=== PATIENT | male | born 1945 | race Caucasian/White ===

== ENCOUNTER → 2019-03-20 | Outpatient (CLI) | payer MEDICARE ==
[~2019-03-20] MED LIST: ACET325T14 PO; CIPR500T8 PO; OXYC-302 PO; TAMS0.4C2 PO; TRAM-47 PO
== END | disposition home or self-care (01) ==
LOC: RAD 17:38
PROVIDERS: ATTEND Physician Assistant Surgical
DX: S83.511A Sprain of anterior cruciate ligament of right knee, initial encounter (principal); M17.11 Unilateral primary osteoarthritis, right knee; X58.XXXA Exposure to other specified factors, initial encounter; Y93.89 Activity, other specified; Y92.89 Other specified places as the place of occurrence of the external cause; Y99.8 Other external cause status

== ENCOUNTER 2019-11-17 14:32 | Outpatient (CLI) | payer MEDICARE ==
[2019-11-17] MEDS ORDERED: ESOM40CA PO (15:56)
[2019-11-17] MEDS ORDERED: [UNRECOGNIZED DRUG - OTHER] PO (15:56)
[2019-11-17] MEDS ORDERED: KRIL1CAP5 PO (15:56)
[2019-11-17] MEDS ORDERED: IRON18TA PO (15:56)
[2019-11-17] MEDS ORDERED: UBID100C41 PO (15:56)
[2019-11-17 15:59] LABS: BASOPHILS # (AUTO) 0.01 x10^3/uL (0-0.1); BASOPHILS % (AUTO) 0 % (0-1); EOSINOPHILS # (AUTO) 0.15 x10^3/uL (0-0.4); EOSINOPHILS % (AUTO) 2 % (1-7); LYMPHOCYTES # (AUTO) 1.27 x10^3/uL (1-3.4); LYMPHOCYTES % (AUTO) 21 % (22-44); MD NO; MEAN CORPUSCULAR HEMOGLOBIN 28.8 pg (27.5-34.5); MEAN CORPUSCULAR HGB CONC 32.6 g/dL (33.2-36.2); MEAN CORPUSCULAR VOLUME 88.3 fL (81-97); MEAN PLATELET VOLUME 9.1 fL (7.4-10.4); MONOCYTES # (AUTO) 0.65 x10^3/uL (0.2-0.8); MONOCYTES % (AUTO) 11 % (2-9); NEUTROPHILS # (AUTO) 4.11 x10^3/uL (1.8-6.8); NEUTROPHILS % (AUTO) 67 % (42-75); PLATELET COUNT 199 x10^3/uL (130-400); RED BLOOD COUNT 5.28 x10^6/uL (4.38-5.82); RED CELL DISTRIBUTION WIDTH 19.2 % (9.4-14.8)
== END 2019-11-17 23:59 | disposition home or self-care (01) ==
LOC: STAR 14:32
PROVIDERS: ATTEND Thoracic Surgery (Cardiothoracic Vascular Surgery)
DX: Z01.818 Encounter for other preprocedural examination (principal); Z11.59 Encounter for screening for other viral diseases
CPT/HCPCS: 36415; 85025; 87635; 93005

== ENCOUNTER 2019-11-22 08:45 | Day surgery (SDC) | payer MEDICARE ==
[~2019-11-22] VITALS: Ht 185.4 cm; Wt 93.1 kg
[~2019-11-22 08:45] MED LIST changes: +ESOM40CA PO; +IRON18TA PO; +KRIL1CAP5 PO; +UBID100C41 PO; +[UNRECOGNIZED DRUG - OTHER] PO
[2019-11-22] MEDS ORDERED: BUPIVACAINE/PF-EPI 0.5% 1:200K ONE (09:08)
[2019-11-22] MEDS ORDERED: LACTATED RINGERS 1,000 ML IV SCH ×2 (09:20→12:12)
[2019-11-22 09:21] VITALS: BP 173/106
[2019-11-22] MEDS ORDERED: CHLORHEXIDINE 15 ML UDC MM ONE (09:30)
[2019-11-22] MEDS ORDERED: FENTANYL PF 250 MCG/5ML ONE (10:09)
[2019-11-22] MEDS ORDERED: CLINDAMYCIN 150 MG/ML, 6ML ONE (10:41)
[2019-11-22] MEDS ORDERED: BUPIVACAINE/PF-EPI 0.5% 1:200K INFIL ONE (11:02)
[2019-11-22] MEDS ORDERED: ACETAMINOPHEN 325 MG TABLET PO PRN (11:30)
[2019-11-22] MEDS ORDERED: OXYcodone 5 MG/5 ML ORAL.SOL UDC PO PRN (11:30)
[2019-11-22] MEDS ORDERED: MEPERIDINE/PF 25MG/0.5ML IVPush PRN (11:30)
[2019-11-22] MEDS ORDERED: PROMETHAZINE 25 MG/ML, 1ML IVPush PRN (11:30)
[2019-11-22] MEDS ORDERED: HYDROmorphone 1 MG/ML, 1ML INJ IVPush PRN (11:30)
[2019-11-22] MEDS ORDERED: LABETALOL 5MG/ML, 20ML IV PRN (11:30)
[2019-11-22] MEDS ORDERED: hydrALAzine 20 MG/ML, 1ML IV PRN ×2 (11:30→12:30)
[2019-11-22] MEDS ORDERED: MIDAZOLAM 1 MG/ML, 2ML IV PRN (11:30)
[2019-11-22] MEDS ORDERED: ALBUTEROL SULFATE 2.5 MG/3 ML NPPB PRN (11:30)
[2019-11-22] MEDS ORDERED: FENTANYL PF 100 MCG/2ML ONE ×2 (11:46→12:16)
[2019-11-22] MEDS ORDERED: ROCURONIUM 10MG/ML,5ML ONE (11:58)
[2019-11-22] MEDS ORDERED: GLYCOPYRROLATE 0.2MG/1ML, 5ML ONE (11:58)
[2019-11-22] MEDS ORDERED: DEXAMETHASONE 4 MG/ML, 1ML ONE (11:58)
[2019-11-22] MEDS ORDERED: ONDANSETRON 2MG/ML, 2ML ONE (11:58)
[2019-11-22] MEDS ORDERED: PROPOFOL 10 MG/ML, 20ML ONE (11:58)
[2019-11-22] MEDS ORDERED: CEFAZOLIN 1,000 MG ONE (11:58)
[2019-11-22] MEDS ORDERED: NEOSTIGMINE 1 MG/ML, 10ML ONE (11:58)
[2019-11-22] MEDS: FENTANYL PF 100 MCG/2ML IV PRN ×2 (12:15→12:24)
[2019-11-22] MEDS ORDERED: OXYcodone 5 MG/5 ML ORAL.SOL UDC ONE (12:17)
[2019-11-22] MEDS ORDERED: PROMETHAZINE 25 MG/ML, 1ML IM PRN (12:30)
[2019-11-22] MEDS ORDERED: PROMETHAZINE 12.5 MG SUPP PR PRN (12:30)
[2019-11-22] MEDS ORDERED: morphine SULFATE 10 MG/ML, 1ML IV PRN (12:30)
[2019-11-22] MEDS ORDERED: KETOROLAC 30 MG/1 ML IV PRN (12:30)
[2019-11-22] MEDS ORDERED: FAMOTIDINE 20 MG/2 ML IV SCH (12:30)
[2019-11-22] MEDS ORDERED: ENALAPRILAT 1.25 MG/ML, 2ML IV PRN (12:30)
[2019-11-22] MEDS ORDERED: HYDROcodone/APAP 7.5-325MG/15ML UDC PO PRN (12:30)
[2019-11-22] MEDS ORDERED: ONDANSETRON 2MG/ML, 2ML IVPush PRN (12:30)
[2019-11-22] MEDS ORDERED: KETOROLAC 30 MG/1 ML ONE (12:31)
[2019-11-22] MEDS ORDERED: PROMETHAZINE 25 MG/ML, 1ML ONE (12:46)
[2019-11-22] MEDS ORDERED: METHOCARBAMOL 1000MG/10 ML IVPB ONE (13:00)
[2019-11-22] MEDS ORDERED: METHOCARBAMOL 1,000 MG in DEXTROSE 5% 100 ML IV ONE (13:00)
[2019-11-22] MEDS ORDERED: METHOCARBAMOL 1,000 MG in DEXTROSE 5% 100 ML IV SCH (13:00)
[2019-11-23] MEDS ORDERED: ENOXAPARIN 40 MG/0.4 ML SQ SCH (09:00)
== END 2019-11-22 15:50 | disposition home or self-care (01) ==
LOC: OUT 08:45
PROVIDERS: ATTEND Thoracic Surgery (Cardiothoracic Vascular Surgery)
DX: K44.9 Diaphragmatic hernia without obstruction or gangrene (principal); K22.70 Barrett's esophagus without dysplasia; K21.0 Gastro-esophageal reflux disease with esophagitis; D50.9 Iron deficiency anemia, unspecified; Z79.899 Other long term (current) drug therapy; Z87.442 Personal history of urinary calculi; Z98.890 Other specified postprocedural states; Z82.3 Family history of stroke; Z81.8 Family history of other mental and behavioral disorders
CPT/HCPCS: 43282; C1781; J0690; J1100; J1885; J2405; J2550; J2704; J2710; J2800; J3010; J7120